=== PATIENT | female | born 1985 | race African-American/Black ===

== ENCOUNTER 2016-10-13 22:51 | Inpatient (IN) | payer BC, MEDICAID ==
[~2016-10-13] VITALS: Ht 167.6 cm; Wt 111.1 kg
[2016-10-13] MEDS: LACTATED RINGER'S 1000 ML INJ 1,000 ML IV SCH (00:01)
[~2016-10-13 22:51] MED LIST: DOXY100T PO; IBUP800T23 PO; Z.0.NO CURRENT MEDS
[2016-10-13] MEDS ORDERED: LACTATED RINGER'S 1000 ML INJ 1,000 ML IV PRN (23:32)
--- NOTE | 2016-10-13 23:32 | PD ---
HPI Chief Complaint contractions Date Seen: October 13, 2016 Time Seen: 23:27 Travel History International Travel<30 Days: No Contact w/Intl Traveler<30Days: No Known Affected Area: No History of Present Illness HPI 31 yo at 38 weeks 6 days seen in office this am with a 6cm cervix. She was told to come to hospital but did not as she did not experience contractions until this evening. Denies vag bleeding, discharge, or rupture of membranes. GBS negative Para: 1 : 2 History Past Medical History Medical History: Denies Significant Hx Obstetric History Obstetric History 6#14oz Past Surgical History Surgical History: No Previous Surgery Family History Family History: Negative Social History Alcohol Use: No Tobacco Use: No Substance Abuse: No Allergies-Medications (Allergen,Severity, Reaction): Coded Allergies: No Known Allergies (Unverified , 03/10/12) Home Meds Active Scripts Doxycycline Hyclate 100 mg 100 Mg Cap1 Tab PO BID 10 Days Prov:Jass Barboza MD 03/11/12 Ibuprofen 800 Mg [id number] Mg PO TIDPRN #20 Prov:JESUS CAMPO M.D. 08/08/11 Reported Medications Miscellaneous (No Current Meds) Misc 08/08/11 Review of Systems Except as stated in HPI: all other systems reviewed are Neg Physical Exam Narrative GENERAL: Well-nourished, well-developed patient. SKIN: Warm and dry. HEAD: Normocephalic and atraumatic. EYES: No scleral icterus. No injection or drainage. ENT: No nasal drainage noted. Mucous membranes pink. Airway patent. NECK: Supple, trachea midline. No JVD. CARDIOVASCULAR: Regular rate and rhythm without murmurs, gallops, or rubs. RESPIRATORY: Breath sounds equal bilaterally. No accessory muscle use. BREASTS: Bilateral exam showed no masses , no retractions, no nipple discharge. ABDOMEN/GI: Abdomen soft, non-tender, bowel sounds present, no rebound, no guarding Gravid to [-40] weeks size Fundal Height: [-] GENITOURINARY: External Genitalia: intact and normal in appearance BUS glands: [-nl] Cervix: [-ant] Dilatation: [-6-7] Effacement: [-90] Station: [--2] Presentation: [-vtx] Membranes: [intact] Uterine Contractions: [-] FHT's: Category: [1-] Baseline: [140-] Reactive: [-mod] Variability: [-mod] Decels: [-absent] EXTREMITIES: No cyanosis or edema. BACK: Nontender without obvious deformity. No CVA tenderness. NEUROLOGICAL: Awake and alert. Motor and sensory grossly within normal limits. Five out of 5 muscle strength in all muscle groups. Normal speech. Data Data Vital Signs Reviewed: Yes MDM Plan at 38 6/7 weeks gestation with advanced dilation. Will admit. Diagnosis Diagnosis: Primary Impression: 38 weeks gestation of Additional Impressions: Intact amniotic membranes during in third trimester Irregular uterine contractions Jena Enrique MD October 13, 2016 23:32
[2016-10-13] MEDS ORDERED: CITRIC ACID-SODIUM CITRATE LIQ 30 ML UDC PO SCH (23:45)
[2016-10-13] MEDS ORDERED: OXYTOCIN 30 UNITS-500ML PREMIX 500 ML IV ONE (23:45)
[2016-10-13] MEDS ORDERED: MINERAL OIL 10 ML VIAL TOPICAL PRN (23:45)
[2016-10-13] MEDS ORDERED: LIDOCAINE HCL 1% 50 ML VIAL I-DERMAL PRN (23:45)
[2016-10-13] MEDS ORDERED: ONDANSETRON HCL 4 MG/2 ML VIAL IV PRN (23:45)
[2016-10-13] MEDS ORDERED: LIDOCAINE HCL 1% 50 ML VIAL INFIL PRN (23:45)
[2016-10-13] MEDS ORDERED: SODIUM CHLORID 0.9% 500 ML INJ 500 ML IV PRN (23:45)
[2016-10-13] MEDS ORDERED: SODIUM CHLOR 0.9% 1000 ML INJ 1,000 ML IV PRN (23:52)
[2016-10-14] VITALS (20 sets, daily range): BP systolic 104–143; BP diastolic 64–100; PULSE 64–100; RESP 18–20; TEMP 97.8–98.7
[2016-10-14] MEDS: LACTATED RINGER'S 1000 ML INJ 1,000 ML IV SCH (00:01)
[2016-10-14 00:25] LABS: AUTOMATED NEUTROPHIL # 5.1 TH/MM3 (1.8-7.7); BASOPHIL % 0.4 % (0.0-2.0); EOSINOPHIL # 0.1 TH/MM3 (0-0.4); EOSINOPHIL % 1.1 % (0.0-4.0); HEMATOCRIT 37.5 % (35.0-46.0); HEMO FLAGS DIFF FINAL; LYMPH % 27.2 % (9.0-44.0); LYMPHOCYTE # 2.3 TH/MM3 (1.0-4.8); MEAN CELL VOLUME 78.5 FL (80.0-100.0); MEAN CORPUSCULAR HEMOGLOBIN 25.2 PG (27.0-34.0); MONO % 9.7 % (0.0-8.0); NEUT % 61.6 % (16.0-70.0); PLATELET COUNT 311 TH/MM3 (150-450); RED BLOOD COUNT 4.78 MIL/MM3 (4.00-5.30); RED CELL DISTRIBUTION WIDTH 13.9 % (11.6-17.2); WHITE BLOOD COUNT 8.3 TH/MM3 (4.0-11.0)
[2016-10-14 02:05] LABS: BACTERIA, URINE OCC /hpf; BLOOD, URINE NEG (NEG); COMMENT (UR) CULTURE INDICATED; CULTURE IF INDICATED CULTURE INDICATED; GLUCOSE,URINE NEG (NEG); KETONE, URINE TRACE mg/dL (NEG); MUCUS URINE MANY /lpf (OCC); NITRITE,URINE NEG (NEG); RENAL EPITHELIAL CELLS <1 /hpf; SQUAMOUS EPITHELIAL CELL URINE 9 /hpf (0-5); URINE COLOR YELLOW (YELLW/STRAW)
[2016-10-14] MEDS ORDERED: NIFEdipine 10 MG CAP PO PRN ×3 (09:30→10:00)
[2016-10-14] MEDS ORDERED: OXYTOCIN 30 UNITS-500ML PREMIX 500 ML IV SCH (09:30)
[2016-10-14 10:20] LABS: ANION GAP 7 MEQ/L (5-15); AST (GOT) 11 U/L (15-37); BICARBONATE 25.1 MEQ/L (21.0-32.0); BLOOD UREA NITROGEN 4 MG/DL (7-18); CHLORIDE 106 MEQ/L (98-107); GLOMERULAR FILTRATION RATE 188 ML/MIN (>89); POTASSIUM 3.7 MEQ/L (3.5-5.1); SODIUM (NA) 138 MEQ/L (136-145)
[2016-10-14 10:22] LABS: ALT (GPT) 14 U/L (10-53); URIC ACID 2.1 MG/DL (2.6-6.0)
[2016-10-14 10:24] LABS: ALKALINE PHOSPHATASE 409 U/L (45-117); TOTAL BILIRUBIN ADULT 0.3 MG/DL (0.2-1.0)
[2016-10-14] MEDS ORDERED: LABETALOL HCL 100 MG/20 ML VIAL IV PUSH PRN (10:30)
--- NOTE | 2016-10-14 11:09 | HHI.HP ---
History & Physical H&P History of Present Illness HPI 31 yo at 38 weeks 6 days seen in office this am with a 6cm cervix. She was told to come to hospital but did not as she did not experience contractions until this evening. Denies vag bleeding, discharge, or rupture of membranes. GBS negative Para: 1 : 2 History (Limited) History Past Medical History Medical History: Denies Significant Hx Obstetric History Obstetric History 6#14oz Past Surgical History Surgical History: No Previous Surgery Family History Family History: Negative Social History Alcohol Use: No Tobacco Use: No Substance Abuse: No Allergies-Medications Allergies-Medications (Allergen,Severity, Reaction): Coded Allergies: No Known Allergies (Unverified , 03/10/12) Home Meds Active Scripts Doxycycline Hyclate 100 mg 100 Mg Cap1 Tab PO BID 10 Days Prov:Jass Barboza MD 03/11/12 Ibuprofen 800 Mg [id number] Mg PO TIDPRN #20 Prov:JESUS CAMPO M.D. 08/08/11 Reported Medications Miscellaneous (No Current Meds) Misc 08/08/11 ROS Review of Systems Except as stated in HPI: all other systems reviewed are Neg Physical Exam Physical Exam Narrative GENERAL: Well-nourished, well-developed patient. SKIN: Warm and dry. HEAD: Normocephalic and atraumatic. EYES: No scleral icterus. No injection or drainage. ENT: No nasal drainage noted. Mucous membranes pink. Airway patent. NECK: Supple, trachea midline. No JVD. CARDIOVASCULAR: Regular rate and rhythm without murmurs, gallops, or rubs. RESPIRATORY: Breath sounds equal bilaterally. No accessory muscle use. BREASTS: Bilateral exam showed no masses , no retractions, no nipple discharge. ABDOMEN/GI: Abdomen soft, non-tender, bowel sounds present, no rebound, no guarding Gravid to [-40] weeks size Fundal Height: [-] GENITOURINARY: External Genitalia: intact and normal in appearance BUS glands: [-nl] Cervix: [-ant] Dilatation: [-6-7] Effacement: [-90] Station: [--2] Presentation: [-vtx] Membranes: [intact] Uterine Contractions: [-] FHT's: Category: [1-] Baseline: [140-] Reactive: [-mod] Variability: [-mod] Decels: [-absent] EXTREMITIES: No cyanosis or edema. BACK: Nontender without obvious deformity. No CVA tenderness. NEUROLOGICAL: Awake and alert. Motor and sensory grossly within normal limits. Five out of 5 muscle strength in all muscle groups. Normal speech. Data Data Data Vital Signs Reviewed: Yes MDM MDM Plan at 38 6/7 weeks gestation with advanced dilation. Will admit. Diagnosis Diagnosis: Primary Impression: 38 weeks gestation of Additional Impressions: Intact amniotic membranes during in third trimester Irregular uterine contractions Lizbeth Mathew MD R2 October 14, 2016 11:09
--- NOTE | 2016-10-14 11:12 | PD.OB.DELI ---
Delivery Date: October 14, 2016 Anesthesia: None Episiotomy: None Vaginal Delivery: Normal Presentation: Occiput anterior Nuchal Cord: None Delayed cord clamping (45 sec): Yes (60 seconds) : Male One Minute : 8 Five Minute : 9 Weight: 3445g Placenta: Spontaneous delivery, Intact, 3 vessel cord Laceration: 1 deg (periurethral laceration) Additional Information EBL 250cc. Baby Bertrand. Supervised by Dr. Riddle. Lizbeth Mathew MD R2 October 14, 2016 11:12
[2016-10-14] MEDS ORDERED: ACETAMINOPHEN 325 MG TAB PO PRN (11:15)
[2016-10-14] MEDS ORDERED: WITCH HAZEL 50%/GLYCERIN 12.5% 40 PAD JAR TOPICAL PRN (11:15)
[2016-10-14] MEDS ORDERED: ALUMINUM/MAGNESIUM/SIMETH 30 ML CUP PO PRN (11:15)
[2016-10-14] MEDS ORDERED: BENZOCAINE 20% TOPICAL SPRAY 60 ML CAN TOPICAL PRN (11:15)
[2016-10-14] MEDS ORDERED: ONDANSETRON ODT 4 MG TAB PO PRN (11:15)
[2016-10-14] MEDS ORDERED: ZOLPIDEM TARTRATE 5 MG TAB PO PRN (11:15)
[2016-10-14] MEDS ORDERED: OXYTOCIN 30 UNITS-500ML PREMIX 500 ML IV ONE (11:15)
[2016-10-14] MEDS ORDERED: SODIUM CHLORIDE 0.9% FLUSH 10 ML FLUSH IV FLUSH PRN (11:15)
[2016-10-14] MEDS ORDERED: MISOPROSTOL 200 MCG TAB PR ONE (12:00)
[2016-10-14] MEDS: IBUPROFEN 600 MG TAB PO PRN ×2 (12:53→19:36)
[2016-10-14] MEDS: ACETAMINOPHEN/HYDROcodone 325 MG/5 MG TAB PO PRN ×3 (15:31→23:26)
[2016-10-14] MEDS ORDERED: MEASLES, MUMPS, RUBELLA VACCINE 0.5 ML VIAL SQ ONE (16:00)
[2016-10-14] MEDS ORDERED: DIPHTH/TETANUS/ACEL PERTUSSIS (BOOSTER) 0.5 ML VIAL/PFS IM ONE (16:00)
[2016-10-14] MEDS: DOCUSATE SODIUM 50 MG/SENNA 8.6 MG TAB PO PRN (19:36)
[2016-10-14] MEDS ORDERED: SODIUM CHLORIDE 0.9% FLUSH 10 ML FLUSH IV FLUSH SCH (21:00)
[2016-10-15] MEDS: ACETAMINOPHEN/HYDROcodone 325 MG/5 MG TAB PO PRN ×3 (05:52→13:53)
[2016-10-15] MEDS: IBUPROFEN 600 MG TAB PO PRN ×2 (05:52→11:47)
[2016-10-15 07:40] VITALS: BP 120/80; PULSE 82; RESP 20; TEMP 97.7
--- NOTE | 2016-10-15 08:12 | HHI.DCPOC ---
Discharge Care Plan Diagnosis: (1) Vaginal delivery Report Symptoms to Your Doctor -Temperature above 100.5 degrees -Redness, of incision or excessive or foul smelling drainage -Unusual pain or calf pain -Increased vaginal bleeding -Painful or difficulty urinating -Feelings of extreme sadness or anxiety after 2 weeks Goals to Promote Your Health * To prevent worsening of your condition and complications * To maintain your health at the optimal level Directions to Meet Your Goals Take your medications as prescribed Follow your dietary instruction Follow activity as directed Ensure plenty of rest for recovery Drink fluids for hydration Keep your appointments as scheduled Take your immunizations and boosters as scheduled If your symptoms worsen call your PCP, if no PCP go to Urgent Care Center or Emergency Room Smoking is Dangerous to Your Health. Avoid second hand smoke Call the 24-hour crisis hotline for domestic abuse at Rickey Riddle MD Oct 15, 2016 08:12
[2016-10-15] MEDS ORDERED: IBUP-232 PO (08:14)
[2016-10-15] MEDS ORDERED: HYDR-3516 PO (08:14)
--- NOTE | 2016-10-15 08:58 | HHI.OB ---
Subjective Post Day: 1 Objective Vitals/I&O Vital Signs Date Time Temp Pulse Resp B/P Pulse Ox O2 Delivery O2 Flow Rate FiO2 10/14/16 19:40 98.4 76 10/14/16 19:39 104/69 10/14/16 15:15 98.3 83 18 111/75 10/14/16 12:46 68 122/70 10/14/16 12:31 64 124/71 10/14/16 12:30 20 10/14/16 12:16 79 124/71 10/14/16 12:01 73 126/68 10/14/16 12:00 20 10/14/16 11:46 87 122/77 10/14/16 11:45 20 10/14/16 11:31 86 121/74 10/14/16 11:16 90 20 126/64 10/14/16 11:15 20 10/14/16 09:57 100 140/100 10/14/16 09:55 20 Objective Remarks GENERAL: Well-nourished, well-developed patient. CARDIOVASCULAR: Regular rate and rhythm without murmurs, gallops, or rubs. RESPIRATORY: Breath sounds equal bilaterally. No accessory muscle use. ABDOMEN/GI: Abdomen soft, non-tender. Fundus: Firm, non-tender at umbilicus. GENITOURINARY: Light to moderate bleeding. EXTREMITIES: No cyanosis or edema, non-tender, without signs of DVT. Medications and IVs Current Medications Medications (Trade) Dose Ordered Sig/Angela Route Start Time Stop Time Status Last Admin (NS Flush) 2 ml BID IV FLUSH 10/14/16 21:00 (NS Flush) 2 ml UNSCH PRN IV FLUSH 10/14/16 11:15 (Tylenol) 650 mg Q4H PRN PO 10/14/16 11:15 (Motrin) 600 mg Q6H PRN PO 10/14/16 11:15 10/15/16 05:52 (Americaine 20% Top Spr) 1 spray Q4H PRN TOPICAL 10/14/16 11:15 10/14/16 17:12 (Tucks Pads) 1 applic QID PRN TOPICAL 10/14/16 11:15 10/14/16 17:12 (Jami-Colace) 2 tab Q12H PRN PO 10/14/16 11:15 10/14/16 19:36 (Ambien) 5 mg HS PRN PO 10/14/16 11:15 (Mag-Al Plus Susp Liq) 15 ml Q8H PRN PO 10/14/16 11:15 (Zofran Odt) 4 mg Q6H PRN PO 10/14/16 11:15 ([place] 5-325 Mg) 1 tab Q4H PRN PO 10/14/16 11:15 10/15/16 05:52 Assessment/Plan Problem List: (1) Vaginal delivery Plan: routine Assessment and Plan pt doing well pain well managed with oral pain medication and bonding with routine care Discharge Planning dc home today Crys Henning Oct 15, 2016 08:58
--- NOTE | 2016-10-15 09:02 | HHI.DS ---
Admission Date October 13, 2016 at 23:34 Discharge Date: Oct 15, 2016 Admitting Diagnosis 38 week labor Diagnosis: (1) Vaginal delivery Diagnosis: Principal Delivery Date: October 14, 2016 Infant: Male Brief History 38 + week labor Hospital Course routine Pt Condition on Discharge: Good Discharge Disposition: Discharge Home Discharge Instructions Diet Instructions: As Tolerated, No Restrictions Additional Diet Instructions: Drink at least 8 - 16 oz bottles of water a day Activities You Can Perform: Shower Only-No Bath, Sitz Bath Activities to Avoid: Lifting/Bending, Sexual Activity Additional Activity Instruc.: No driving until off pain medications Do not lift anything heavier than your baby in an infant carrier 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
[2016-10-15] MEDS: DOCUSATE SODIUM 50 MG/SENNA 8.6 MG TAB PO PRN (13:51)
== END 2016-10-15 17:20 | disposition home or self-care (01) | DRG 775 ==
LOC: HOBED 22:51 → H2EB 23:34 → H1EA 10-14 13:15
PROVIDERS: ADMIT Obstetrics & Gynecology; ATTEND Obstetrics & Gynecology
PROC: 10E0XZZ Delivery of Products of Conception, External Approach (ICD-10-PCS; principal; 2016-10-13)
DX: O70.0 First degree perineal laceration during delivery (principal); Z37.0 Single live birth; Z3A.38 38 weeks gestation of pregnancy
CPT/HCPCS: 80053; 81001; 84550; 85025; 86900; 86901; 87086; 90715; 99285; J2590; J3010; J7120